=== PATIENT | female | born 1970 | race Caucasian/White ===

== ENCOUNTER 2017-05-11 08:56 | Inpatient (IN) | payer BC ==
[~2017-05-11] VITALS: Ht 167.6 cm; Wt 82.1 kg
--- NOTE | ~2017-05-11 | 2DMMODE ---
[facility] [address] [facility] [place] [address] 2 D/M-MODE ECHOCARDIOGRAM Name: WADNA MEDLEY Room #: 454-P ADM IN M.R.#: [id number] Admission: 05/11/17 Attend Phys: Sachin Rios Discharge: Date of : 66 Date of Service: 05/11/17 1429 Report #: [id number] THIS REPORT FOR: //name// ADDENDUM APPROVED REPORT Study performed: 05/11/2017 11:50:10 EXAM: Comprehensive 2D, Doppler, and color-flow Echocardiogram Patient Location: Echo lab Room #: 454 Status: routine Other Information Study Quality: Good Technically limited study due to bigeminy PVC's. Indications Facial Droop Hx DM, Arrhythmia, HTN, HLP 2D Dimensions RVDd: 33.00 mm LVEF(%): 51.29 (>50%) IVSd: 8.87 (7-11mm) LVOT Diam: 20.26 (18-24mm) LVDd: 60.36 mm PWd: 11.11 (7-11mm) Ascending Ao: 28.62 (22-36mm) LVDs: 44.25 (25-40mm) Aortic Root: 33.27 mm IVC: 2.40 mm Jesus's LVEF: 51.29 % Volumes Left Atrial Volume (Systole) Single Plane 4CH: 43.36 mL Single Plane 2CH: 51.77 mL LA ESV Index: 29.00 mL/m2 Aortic Valve AoV Peak Rosalio.: 1.50 m/s AO Peak Gr.: 8.96 mmHg LVOT Max P.34 mmHg LVOT Max V: 0.76 m/s RAEANN Vmax: 1.65 cm2 Mitral Valve E/A Ratio: 1.2 MV Decel. Time: 198.98 ms MV E Max Rosalio.: 1.20 m/s MV A Rosalio.: 0.99 m/s MV PHT: 57.70 ms [facility] [place] [address] 2 D/M-MODE ECHOCARDIOGRAM Name: WANDA MEDLEY Room #: 454-P [facility] IN ..#: [id number] Admission: 05/11/17 Attend Phys: Sachin Rios Discharge: Date of : 66 Date of Service: 05/11/17 1429 Report #: [id number] IVRT: 83.04 ms Pulmonary Valve PV Peak Rosalio.: 0.94 m/s PV Peak Gr.: 3.56 mmHg Pulmonary Vein P Vein S: 0.68 m/s P Vein A: 0.24 m/s P Vein D: 0.34 m/s P Vein A Dur.: 110.7 msec P Vein S/D Ratio: 2.00 Tricuspid Valve PA Pressure: 10.00 mmHg Left Ventricle Left ventricle is at the upper limits of normal. There is normal LV segmental wall motion. There is normal left ventricular wall thickness. Left ventricular systolic function is mildl-moderately decreased. LVEF is 40-45%. This study is not technically sufficient to allow evaluation of the LV diastolic function. Due to frequent PVC's. Right Ventricle The right ventricle is normal size. The right ventricular systolic function is normal. Atria Left atrium is mildly dilated. Interatrial septum is intact without evidence of ASD or PFO. The right atrium size is normal. Aortic Valve The aortic valve is normal in structure. Trace to mild aortic regurgitation. There is no aortic valvular stenosis. Mitral Valve There is mitral annular calcification. Mild mitral regurgitation. No evidence of mitral valve stenosis. Tricuspid Valve The tricuspid valve is normal in structure. There is trace to mild tricuspid regurgitation. The right atrial pressure is estimated at 10 mmHg. Pulmonic Valve The pulmonary valve is normal in structure. Trace pulmonic regurgitation. [place] [id number] 2 D/M-MODE ECHOCARDIOGRAM Name: WANDA MEDLEY Room #: 454-P [facility] IN .R.#: [id number] Admission: 05/11/17 Attend Phys: Sachin Rios Discharge: Date of : 66 Date of Service: 05/11/17 1429 Report #: [id number] Great Vessels The aortic root is normal in size. The ascending aorta is normal in size. IVC is dilated and collapses >50% with inspiration. Pericardium There is no pericardial effusion. <Conclusion> Left ventricular systolic function is mildl-moderately decreased. Left ventricle is at the upper limits of normal. LVEF 40-45%. Frequent, isolated PVC's Left atrium is mildly dilated. The aortic valve is normal in structure, no aortic valvular stenosis, trace insufficiency . There is mitral annular calcification. Mild mitral regurgitation. Pulmonary artery could not be reliably ascertained There is no pericardial effusion. No shunting by congtrast bubble injection <ELECTRONICALLY SIGNED> By: Tomi Arreaga MD, FACC 05/11/17 1429 28 28 Tomi Arreaga MD, FACC /INF
--- NOTE | ~2017-05-11 | EKG ---
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 : 1970 Requested By: Mikie Dick Order Number: [id number] MD: Tomi Arreaga Measurements Intervals [place] Rate: 108 P: 27 LA: 137 QRS: -27 QRSD: 100 T: 87 QT: 343 QTc: 460 Interpretive Statements Sinus tachycardia Ventricular bigeminy Probable left atrial enlargement Inferior infarct, old Poor R wave progression Compared to ECG 07/23/2009 14:04:27 Ventricular premature complex(es) now present Myocardial infarct finding now present Electronically Signed On 05-11-2017 18:12:27 CDT by Tomi Arreaga [email or web address] <ELECTRONICALLY SIGNED> By: Tomi Arreaga MD, [facility] 05/11/17 1812 1 1 Tomi Arreaga MD, [facility] /EPI
[~2017-05-11 08:56] MED LIST: APAP500 PO; ASPIR 8181 MG PO; BUMETANIDE0.25 MG/1 PO; CARVEDILOL12.5 MG PO; COLCHICINE0.6 MG PO; COZAAR 25 MG TA25 MG PO; CRANBERRY500 M1 PO; HYDROCODON-ACE1 EAC7 PO; LANTUS100 UNIT/M SUBQ; LIPITOR10 MG PO; METFORMIN HCL500 MG PO; NEURONTIN 300300 M1 PO; PERCOCET 5-3251 EACH PO; TRAMADOL 50 MG50 MG PO; UNICOMPLEX M TA1 TA1 PO; VITAMIN D1000 UNI1 PO; VOLTAREN GEL 1100 G2 TOP
[2017-05-11 09:03] VITALS: BP 118/60
[2017-05-11 09:29] LABS: ABSOLUTE NEUTROPHILS 3.6 thou/uL (1.4-8.2); BASOPHILS 0.8 % (0.0-2.0); EOSINOPHILS 3.1 % (0.0-3.0); HEMATOCRIT 32.9 % (37.0-47.0); HEMOGLOBIN 10.7 gm/dL (12.0-15.0); LYMPHOCYTES 32.4 % (24.0-44.0); MCH 29.8 pg (26.0-34.0); MCHC 32.4 g/dL (28.0-37.0); MONOCYTES 7.7 % (1.0-8.0); PLATELET COUNT 208 thou/uL (150-400); RBC 3.58 mil/uL (4.20-5.00); RDW 17.1 % (10.5-14.5); WBC 6.5 thou/uL (4.0-11.0)
[2017-05-11 09:31] LABS: MANUAL DIFF NO
[2017-05-11 09:41] LABS: ANION GAP 9 mmol/L (7-16); BUN 49 mg/dL (7-18); CHLORIDE 108 mmol/L (98-107); CO2 24 mmol/L (21-32); CREATININE 1.9 mg/dL (0.6-1.0); GLUCOSE 105 mg/dL (74-106); SODIUM 141 mmol/L (136-145)
[2017-05-11 09:45] LABS: APTT 25.3 Seconds (24.5-32.8); PROTIME 10.2 Seconds (9.3-11.4)
[2017-05-11 09:49] LABS: TROPONIN-I < 0.04 ng/mL (<0.04-0.07)
[2017-05-11] MEDS ORDERED: CYCLOBENZAPRINE5 MG PO (10:18)
[2017-05-11] MEDS ORDERED: APAP500 PO (10:19)
[2017-05-11 10:45] VITALS: BP 120/52
[2017-05-11 11:40] LABS: CHOLESTEROL 172 mg/dL (<200); HDL CHOLESTEROL 28 mg/dL (>40); LDL CHOLESTEROL 85 mg/dL (<100); TC:HDL 6.1 Ratio (Not establshd); TRIGLYCERIDE 296 mg/dL (<150); VLDL 59 mg/dL (<40)
[2017-05-11 12:15] VITALS: BP 128/45
[2017-05-11 16:04] VITALS: BP 136/59
[2017-05-11 18:52] VITALS: BP 134/50
[2017-05-12] VITALS: BP 144/59
[2017-05-12 03:44] VITALS: BP 147/59
[2017-05-12 05:35] LABS: CALCIUM 9.2 mg/dL (8.5-10.1); CREATININE 1.3 mg/dL (0.6-1.0)
[2017-05-12 06:12] LABS: GLYCOHEMOGLOBIN (HGB A1C) 6.4 % (4.8-5.6)
[2017-05-12 07:12] VITALS: BP 144/58
[2017-05-12 12:16] VITALS: BP 141/67
[2017-05-12 14:11] VITALS: BP 141/67
== END 2017-05-12 14:37 | disposition home or self-care (01) | DRG 92 ==
LOC: ER 08:56 → 4W 10:00 → EROBS 10:00 → 4W 10:47
PROVIDERS: Internal Medicine Endocrinology, Diabetes & Metabolism; Physician Assistant; Psychiatry & Neurology Neurology
DX: G24.4 Idiopathic orofacial dystonia (principal); G45.9 Transient cerebral ischemic attack, unspecified; N17.9 Acute kidney failure, unspecified; E78.5 Hyperlipidemia, unspecified; E11.40 Type 2 diabetes mellitus with diabetic neuropathy, unspecified; I10 Essential (primary) hypertension; M10.9 Gout, unspecified; E88.81 Metabolic syndrome and other insulin resistance; E86.0 Dehydration; Z79.4 Long term (current) use of insulin; Z79.899 Other long term (current) drug therapy; Z90.710 Acquired absence of both cervix and uterus
CPT/HCPCS: 10045